=== PATIENT | female | born 1990 | race Two or more races ===

== ENCOUNTER 2018-05-22 22:16 | Emergency (ER) | payer OTHER ==
[~2018-05-22] VITALS: Ht 160 cm; Wt 49.9 kg
[2018-05-23] MEDS ORDERED: ONDANSETRON HCL/PF 4 MG/2 ML VIAL IVP ONE (00:30)
[2018-05-23] MEDS ORDERED: IV NS 0.9% 1,000 ML BAG IV ONE (00:30)
--- NOTE | 2018-05-23 00:35 | NUR ---
JAMES C/O "FEELING DIZZY +NV TODAY, NAUSEOUS X 1 WK". PT IS AAOX4. SKIN WNL. NO S/S OF ACUTE DISTRESS NOTED. RR EVEN AND UNLABORED. PT PLACED ON MONITOR AND POX. PT SAFETY AND COMFORT MEASURES IN PLACE. PT DENIES ABD PAIN. MD BEDSIDE FOR EVAL.
[2018-05-23] MEDS ORDERED: ONDANSETRON HCL/PF 4 MG/2 ML VIAL ONE (00:40)
[2018-05-23 00:50] LABS: BASOPHILS % (AUTO) 0.4 % (0.0-2.0); EOSINOPHILS % (AUTO) 10.4 % (0.0-6.0); HEMATOCRIT 42 % (33-45); HEMOGLOBIN 13.8 g/dL (11.5-14.8); LYMPHOCYTES # (AUTO) 2.4 /CMM (0.8-4.8); MEAN CORPUSCULAR HGB CONC 33 g/dl (31.0-36.0); MEAN CORPUSCULAR VOLUME 91 fL (82-100); MONOCYTES # (AUTO) 0.6 /CMM (0.1-1.30); MONOCYTES % (AUTO) 7.7 % (2.0-12.0); NEUTROPHILS # (AUTO) 3.8 /CMM (1.8-8.9); NEUTROPHILS % (AUTO) 50.5 % (43.0-81.0); PLATELET COUNT (AUTO) 183 /CMM (150-450); RDW COEFFICIENT OF VARIATION 11.8 (11.5-15.0); WHITE BLOOD COUNT (AUTO) 7.6 K/uL (4.3-11.0)
[2018-05-23 01:02] LABS: CALCIUM, SERUM 9.2 mg/dL (8.5-10.1); CREATININE 0.7 mg/dL (0.6-1.3); POTASSIUM 3.8 mmol/L (3.5-5.1)
[2018-05-23 01:07] LABS: ALBUMIN 4.2 g/dL (3.4-5.0); BILIRUBIN,DIRECT 0.1 mg/dL (0.0-0.2); BILIRUBIN,TOTAL 0.3 mg/dL (0.2-1.0); TOTAL PROTEIN, SERUM 7.2 g/dL (6.4-8.2)
[2018-05-23 01:17] LABS: INR 0.96 (0.87-1.13)
--- NOTE | 2018-05-23 01:27 | NUR ---
[employer] BEDSIDE
--- NOTE | 2018-05-23 02:02 | NUR ---
Patient discharged to home in stable condition. Written and verbal after care instructions given. Patient verbalizes understanding of instruction.IV removed. Catheter intact and site benign. Pressure and 4x4 applied to site. No bleeding noted. NO S/S OF DISTRESS NOTED UPON DISCHARGE
[2018-05-23 02:08] VITALS: BP 107/63
== END 2018-05-23 02:17 | disposition home or self-care (01) ==
LOC: ER 22:28
DX: R55 Syncope and collapse (principal); R42 Dizziness and giddiness; R05 Cough; Z60.2 Problems related to living alone
CPT/HCPCS: 36415; 71045; 80048; 80076; 83690; 85025; 85730; 93005; 96361; 96374; 99285; A4606; J2405; J7030; Z7610

== ENCOUNTER 2018-10-10 05:39 | Emergency (ER) | payer OTHER ==
[~2018-10-10] VITALS: Ht 160 cm; Wt 47.6 kg
[2018-10-10] MEDS ORDERED: LORAZEPAM 0.5 MG TABLET ONE (05:48)
--- NOTE | 2018-10-10 05:50 | NUR ---
PT PRASHANTRA FROM HOME C/O PALPITATIONS AND DIFFICULTY BREATHING. PT STATES SHE WAS STRESSED FROM STUDYING BEFORE SYMPTOMS. PT APPEARS ANXIOUS. AAOX4. RESPIRATIONS EVEN AND UNLABORED. VITAL SIGNS STABLE. WILL CONTINUE TO MONITOR.
--- NOTE | 2018-10-10 05:51 | NUR ---
MD AT BEDSIDE FOR EVALUATION
[2018-10-10] MEDS ORDERED: LORAZEPAM 0.5 MG TABLET PO ONE (06:00)
--- NOTE | 2018-10-10 06:44 | NUR ---
Patient discharged to home in stable condition. Written and verbal after care instructions given. Patient verbalizes understanding of instruction. Pt ambulatory with a steady gait
[2018-10-10 06:46] VITALS: BP 116/71
== END 2018-10-10 06:47 | disposition home or self-care (01) ==
LOC: ER 05:40
DX: F41.9 Anxiety disorder, unspecified (principal); F43.9 Reaction to severe stress, unspecified; F15.10 Other stimulant abuse, uncomplicated; R06.4 Hyperventilation; F98.8 Other specified behavioral and emotional disorders with onset usually occurring in childhood and adolescence; F17.200 Nicotine dependence, unspecified, uncomplicated
CPT/HCPCS: 93005; 99284; A4606